=== PATIENT | female | born 1945 | race Caucasian/White ===

== ENCOUNTER 2016-11-30 20:56 | Emergency (ER) | payer MEDICARE, OTHER ==
[~2016-11-30] VITALS: Ht 162.6 cm; Wt 35.8 kg
[~2016-11-30 20:56] MED LIST: AMB5 PO; BG MC; CLEOCIN HCL300 MG PO; DEXPF IV; FER300 PO; FLA500 PO; FOL1 PO; IPRATROPIUM BROM3 M2 INH; KCL20L PO; LAC PO; LEVAQUIN500 MG PO; LEVAQUIN750 MG PO; LEXAPRO10 MG PO; METOPROLOL TART25 M1 PO; PRI20 PO; RISPERIDONE2 M1 PO; RISPERIDONE3 M2 PO; SLEEP AID25 M2 PO; THERAGRAN-M1 TA4 PO; TRAMADOL HCL50 MG PO; TYL325 PO; VITC PO; ZOFI IV; [UNRECOGNIZED DRUG - OTHER] IV
[2016-11-30 21:16] VITALS: BP 147/74
== END 2016-11-30 21:33 | disposition left against medical advice (07) ==
LOC: ED 20:56
DX: Z53.21 Procedure and treatment not carried out due to patient leaving prior to being seen by health care provider (principal)

== ENCOUNTER 2017-10-05 15:10 | Inpatient (IN) | payer OTHER, MEDICARE ==
[~2017-10-05] VITALS: Ht 162.6 cm; Wt 32.1 kg
[2017-10-05 15:19] VITALS: Ht 162.6 cm; Wt 32.1 kg
[2017-10-05 16:37] LABS: PLATELET COUNT 155 x10^3mcL (130-400)
[2017-10-05 16:42] LABS: CALCIUM 7.5 mg/dL (8.5-10.1); CARBON DIOXIDE 25.9 mmol/L (21-32); CHLORIDE SERUM 110 mmol/L (98-107); CREATININE SERUM 0.6 mg/dL (0.6-1.0); GLUCOSE SERUM 183 mg/dL (74-106); POTASSIUM SERUM 3.1 mmol/L (3.5-5.1); SODIUM SERUM 144 mmol/L (136-145)
[2017-10-05 16:47] LABS: RED CELL DISTRIBUTION WIDTH 15.7 % (11.5-14.5)
[2017-10-05 16:52] LABS: ALBUMIN 1.8 g/dL (3.4-5.0); ALKALINE PHOSPHATASE 593 U/L (46-116); ALT/SGPT 257 U/L (14-59); AST/SGOT 225 U/L (15-37); BILIRUBIN TOTAL 0.8 mg/dL (0.20-1.00); TOTAL PROTEIN, SERUM 4.5 g/dL (6.4-8.2)
[2017-10-05 16:56] LABS: CK-MB 0.7 ng/mL (0-3.6)
[2017-10-05 16:57] LABS: T3 TOTAL 0.21 ng/mL
[2017-10-05 17:13] LABS: FREE T4 1.13 ng/dL (0.76-1.46); FREE THYROXINE INDEX 1.9 ug/dL (1.4-4.5)
[2017-10-05 17:18] LABS: BAND NEUTROPHIL 12 % (0-10); SEGMENTED NEUTROPHILS 62 % (37-75); rbc morphology (normal/abnorm) ABNORMAL (NORMAL)
[2017-10-05 17:42] LABS: microscopic required? YES; urine erythrocyte NEGATIVE (NEGATIVE)
[2017-10-05 17:53] LABS: AMPHETAMINE QUAL UR NONE DETECTED (NEG <=1000)
[2017-10-05 19:16] LABS: MAGNESIUM 1.7 mg/dL (1.8-2.4); PHOSPHOROUS 3.6 mg/dL (2.5-4.9)
[2017-10-05 19:17] LABS: CHOLESTEROL/HDL RATIO 1.1
[2017-10-05 19:32] VITALS: BP 97/46
[2017-10-05 21:28] VITALS: BP 100/60
[2017-10-06 05:23] VITALS: BP 100/61
[2017-10-06 09:45] LABS: CALCIUM 8.3 mg/dL (8.5-10.1); CARBON DIOXIDE 21.2 mmol/L (21-32); CHLORIDE SERUM 111 mmol/L (98-107); CREATININE SERUM 0.8 mg/dL (0.6-1.0); GLUCOSE SERUM 192 mg/dL (74-106); POTASSIUM SERUM 3.2 mmol/L (3.5-5.1); SODIUM SERUM 146 mmol/L (136-145)
[2017-10-06 10:16] VITALS: BP 89/61
[2017-10-06 10:26] VITALS: BP 89/61
[2017-10-06 10:37] LABS: PLATELET COUNT 89 x10^3mcL (130-400); RED CELL DISTRIBUTION WIDTH 16.3 % (11.5-14.5)
[2017-10-06 12:33] LABS: SEGMENTED NEUTROPHILS 60 % (37-75)
[2017-10-06 12:34] LABS: BAND NEUTROPHIL 16 % (0-10); rbc morphology (normal/abnorm) ABNORMAL (NORMAL)
[2017-10-06 12:36] LABS: burr cell (echinocyte) 1+
[2017-10-06 12:39] LABS: acanthocyte (spur cell) 1+; ovalocyte/elliptocyte 1+
[2017-10-06 14:40] VITALS: BP 84/53
[2017-10-06 15:05] VITALS: BP 92/44
== END 2017-10-06 20:30 | disposition expired | DRG 720 ==
LOC: ED 15:10 → DU 17:59
PROVIDERS: Specialist; Student in an Organized Health Care Education/Training Program
PROC: 5A09357 Assistance with Respiratory Ventilation, Less than 24 Consecutive Hours, Continuous Positive Airway Pressure (ICD-10-PCS; principal; 2017-10-06)
DX: A41.9 Sepsis, unspecified organism (principal); N17.0 Acute kidney failure with tubular necrosis; J96.01 Acute respiratory failure with hypoxia; J69.0 Pneumonitis due to inhalation of food and vomit; E43 Unspecified severe protein-calorie malnutrition; G93.41 Metabolic encephalopathy; E87.0 Hyperosmolality and hypernatremia; D69.6 Thrombocytopenia, unspecified; E87.8 Other disorders of electrolyte and fluid balance, not elsewhere classified; I46.9 Cardiac arrest, cause unspecified; J44.9 Chronic obstructive pulmonary disease, unspecified; E83.42 Hypomagnesemia; L89.153 Pressure ulcer of sacral region, stage 3; E86.0 Dehydration; F32.9 Major depressive disorder, single episode, unspecified; F41.9 Anxiety disorder, unspecified; G89.29 Other chronic pain; M54.9 Dorsalgia, unspecified; F17.210 Nicotine dependence, cigarettes, uncomplicated; R62.7 Adult failure to thrive; E87.6 Hypokalemia; E83.51 Hypocalcemia; F03.91 Unspecified dementia, unspecified severity, with behavioral disturbance; D64.9 Anemia, unspecified; E16.2 Hypoglycemia, unspecified; Z66 Do not resuscitate; Z51.5 Encounter for palliative care; F20.9 Schizophrenia, unspecified; R74.0 Nonspecific elevation of levels of transaminase and lactic acid dehydrogenase [LDH]; R65.20 Severe sepsis without septic shock; Z88.2 Allergy status to sulfonamides; Z88.0 Allergy status to penicillin; Z88.8 Allergy status to other drugs, medicaments and biological substances; Z79.899 Other long term (current) drug therapy; Z68.1 Body mass index [BMI] 19.9 or less, adult; Z71.6 Tobacco abuse counseling; Z82.49 Family history of ischemic heart disease and other diseases of the circulatory system; Z80.9 Family history of malignant neoplasm, unspecified
CPT/HCPCS: 36600; 82962; 83880; 84439; G0480; J1644; J1885; J1956; J2001; J2270; J2405; J3475; J3480; J3490; J7030; J7620; Q0092